=== PATIENT | female | born 1965 | race Caucasian/White ===

== ENCOUNTER 2017-12-01 11:13 | Day surgery (SDC) | payer OTHER ==
--- NOTE | 2017-12-01 12:20 | RAD ---
Indication: Foreign body. 2 views of the soft tissues of the neck demonstrates bony density at the inferior pharynx. I cannot totally exclude a radiopaque foreign body in the lateral view at the level of C4-C5. CT without contrast of the neck should BE considered to further evaluate. IMPRESSION: Fine linear radiodensity at the level of the vocal cords at C4-C5 level for which a foreign body cannot be excluded noncontrast CT of the neck could BE performed for further evaluation.
[2017-12-01 13:53] LABS: Urine Appearance Clear; Urine Blood Negative (Negative); Urine Color Straw; Urine Ketones Negative (Negative); Urine Protein Negative (Negative); Urine Red Blood Cell Trace(0-2/hpf) (Absent); Urine Specific Gravity 1.009 (1.010-1.030); Urine Urobilinogen Negative (Negative); Urine White Blood Cell Trace(0-5/hpf) (Absent)
[2017-12-01] MEDS: NS 0.9% 1000 ML* 2,000 ML IV ONE (14:37)
[2017-12-01] MEDS ORDERED: Lidocaine 4% TOPICAL* 50 ML TOP.SOLN ONE (18:00)
[2017-12-01] MEDS ORDERED: Oxymetazoline 0.05% NASAL SPR* 15 ML BTL ONE (18:00)
[2017-12-01] MEDS ORDERED: fentaNYL* 50 MCG/ML 2 ML VIAL (100 MCG VIAL) ONE (18:31)
[2017-12-01] MEDS ORDERED: Succinylcholine* 20 MG/ML 10 ML VIAL ONE (18:32)
[2017-12-01] MEDS ORDERED: Propofol* 10 MG/ML 20 ML BTL IV PUSH ONE (18:32)
[2017-12-01] MEDS ORDERED: Lidocaine 2% PF * 5 ML VIAL ONE (19:21)
[2017-12-01] MEDS ORDERED: Acetaminophen TAB* 325 MG PO PRN (19:31)
[2017-12-01] MEDS ORDERED: fentaNYL* 50 MCG/ML 2 ML VIAL (100 MCG VIAL) IV PRN (19:31)
[2017-12-01] MEDS ORDERED: Naloxone* 0.4 MG/ML 1 ML VIAL IV PRN (19:31)
[2017-12-01 19:53] VITALS: BP 134/104
--- NOTE | 2017-12-01 22:29 | CONS ---
CONSULTATION NOTE: DATE OF CONSULT: 12/01/17 HISTORY OF PRESENT ILLNESS: The patient is a 52-year-old who earlier in the day was eating chicken. She said she felt something get stuck in her throat and it is still there. That was in the early afternoon when this happened. She went to the emergency room and had an x-ray that shows there is probably a foreign body in the throat. It has been at least 5 hours and she continues to feel it. She is quite certain that the bone is stuck. PAST MEDICAL HISTORY: Significant for breast cancer. PAST SURGICAL HISTORY: Breast lumpectomy followed by radiation therapy. MEDICATIONS: None. ALLERGIES: No known drug allergies. PHYSICAL EXAMINATION: She is resting comfortably, in no acute distress. Neck is soft. Nasal laryngoscopy shows normal laryngeal function, no masses or lesions. Hypopharynx, piriform sinuses are clear. Her nose was sprayed with [place]avan -Synephrine and 4% lidocaine for this procedure. ASSESSMENT: The patient has a foreign body in her throat, most likely in the cricopharyngeus based on the x-ray and the fact that I am not seeing it on examination. PLAN: Laryngoscopy with removal of foreign body. We discussed the risks of breaking a tooth and lacerating the esophagus at this level and not finding it because it gets pushed through. She understands and has signed consent. [id number]/[facility] #: [id number] JULIANA
--- NOTE | 2017-12-01 22:35 | ED ---
Phuong Flanagan Jade, scribed for Sona Porter MD on 12/01/17 at 1410 . Neck Pain - HPI Summary HPI Summary: Pt is a 52 y/o female sent here from the who presents to the ED c/o a "chicken bone stuck in her throat". Pt has labs done this morning at the , ordered by her PCP, and while she was there she asked about the possibility of evaluation for chicken bone in her throat, and was advised to come to the ED. She states that last night at 20:30 she was eating "a chicken leg with some back attached to it", when she felt like there was a bone stuck in her throat. She denies any choking or aspiration. Pt states it feels like it feels when a large pill is stuck in her throat, and has a 1/10 discomfort level. Pt denies any hoarseness, but does state that the FB makes her ears stuffed. She is able to swallow liquids, and had no difficulty swallowing a banana smoothie this am. Her last PO intake was this morning at 8:00 (banana smoothie). She denies taking any medications, or PMHx GERD or esophageal procedure or endoscopy. PMHx breast cancer, and PSHx lumpectomy. Denies FHx CAD, or any bad reaction to anesthesia. - History of Current Complaint Chief Complaint: EDGeneral Stated Complaint: FO IN THROAT Time Seen by Provider: 12/01/17 11:43 Hx Obtained From: Patient Hx Last Menstrual Period: august 2015 Onset/Duration Of Injury/Symptoms: Hours Mechanism Of Injury: FB Potential Timing: Constant Onset/Duration: Sudden Onset, Started hours ago - Last night at 20:30, Still Present Severity Initially: Mild Severity Currently: Mild - Discomfort Pain Intensity: 1 Pain Scale Used: 0-10 Numeric Location: Discrete At: - points at level of thyroid cartilage Character: Sharp, Other: - FB (chicken bone) in throat Aggravating Factors: Nothing Alleviating Factors: Nothing Associated Signs & Symptoms: Positive: Negative - Allergies/Home Medications Allergies/Adverse Reactions: Allergies Allergy/AdvReac Type Severity Reaction Status Date / Time gel toothpaste Allergy Rash Uncoded 12/01/17 11:21 octopus Allergy Hives Uncoded 12/01/17 11:21 Home Medications: Home Medications NK [No Home Medications Reported] 12/01/17 [History Confirmed 12/01/17] PMH/Surg Hx/FS Hx/Imm Hx Previously Healthy: No Endocrine/Hematology History: Denies: Hx Diabetes, Hx Systemic Lupus Erythematosus Cardiovascular History: Denies: Hx Congestive Heart Failure, Hx Hypertension, Hx Pacemaker/ICD GI History: Denies: Hx Gastroesophageal Reflux Disease History: Denies: Hx Dialysis, Hx Renal Disease Musculoskeletal History: Denies: Hx Rheumatoid Arthritis Sensory History: Reports: Hx Contacts or Glasses - GLASSES Denies: Hx Hearing Aid Opthamlomology History: Reports: Hx Contacts or Glasses - GLASSES Neurological History: Reports: Other Neuro Impairments/Disorders - 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 D+C, Laparoscopy 2014 Hx Anesthesia Reactions: No Infectious Disease History: No Infectious Disease History: Denies: Hx Clostridium Difficile, Traveled Outside the [place] in Last 30 Days - Family History Known Family History: Negative: Cardiac Disease - Social History Occupation: Employed Full-time Alcohol Use: Weekly Alcohol Amount: 3 GLASSES/WEEK Substance Use Type: Reports: None Smoking Status (MU): Never Smoked Tobacco Have You Smoked in the Last Year: No Review of Systems Negative: Fever ENT: Negative - Hoarseness Positive: Sore Throat - FB in throat, Ear Ache - "Stuffed" Cardiovascular: Negative Respiratory: Negative Gastrointestinal: Negative Neurological: Negative Psychological: Normal All Other Systems Reviewed And Are Negative: Yes Physical Exam - Summary Physical Exam Summary: Appearance: Well-appearing, no pain distress, well-nourished, smiling, ambulatory, normal phonation, managing her own secretions Skin: Warm, color reflects adequate perfusion, dry Head: Normal Head/Face inspection, atraumatic Eyes: Conjunctiva clear ENT: Normal inspection, uvula midline, no evidence of trauma, intraoral mucosa moist, pt points to level of thyroid cartilage where she feels obstruction Neck: Supple, no nodes, no JVD. Respiratory: Lungs clear, normal breath sounds, no respiratory distress Cardio: RRR, No murmur, pulses normal, brisk capillary refill Abdomen: Soft, nontender Bowel sounds: Present Musculoskeletal: Strength Intact/ROM intact, no calf tenderness, no edema. Psychological: Normal Neuro: Alert, muscle tone normal, no focal deficit Triage Information Reviewed: Yes Vital Signs On Initial Exam: Initial Vitals Temp Pulse Resp BP Pulse Ox 96.8 F 82 15 149/94 99 12/01/17 11:17 12/01/17 11:17 12/01/17 11:17 12/01/17 11:17 12/01/17 11:17 Vital Signs Reviewed: Yes Diagnostics - Vital Signs Vital Signs Temp Pulse Resp BP Pulse Ox 12/01/17 13:00 88 98 12/01/17 12:46 87 144/93 98 12/01/17 11:17 96.8 F 82 15 149/94 99 - Laboratory Lab Statement: Any lab studies that have been ordered have been reviewed, and results considered in the medical decision making process. - Radiology Soft Tissue Neck XR Xray Interpretation: Positive (See Comments) - Fine linear radiodensity at the level of the vocal cords at C4-C5 level for which a foreign body cannot be excluded noncontrast CT of the neck could BE performed for further evaluation. ED physician reviewed radiology report. Radiology Interpretation Completed By: Radiologist Re-Evaluation - Re-Evaluation First Eval Re-Evaluation Time: 11:52 Change: Unchanged Comment: Explained to pt that a soft tissue neck XR will be performed. Her last PO intake was today at 8:00 (banana smoothie). Second Eval Re-Evaluation Time: 13:10 Change: Unchanged Comment: Informed pt of radiology results. Third Eval Re-Evaluation Time: 13:37 Change: Unchanged Comment: Informed pt a laryngoscopy will be performed. Neck Course/Dx - Course Course Of Treatment: Pt is a 52 y/o female sent from the c/o foreign body in her throat from eating a chicken leg. Physical exam revealed pt smiling, ambulatory, normal phonation, managing her own secretions, intraoral mucosa moist, pt points to level of thyroid cartilage where she feels obstruction. Soft tissue neck XR reveals fine linear radiodensity at the level of the vocal cords at the C4-C5 level for which a foreign body cannot be excluded. At 13:21 Dr. Nelson (GI) was consulted, who said to consult ENT since foreign body is at the level of the vocal cords. At 13:35 Dr. Echevarria (ENT) was consulted, and he will perform a laryngoscopy. Dx is esophageal foreign body. Dr. Echevarria accepts pt for admission. Pt allergies reviewed in this visit. - Diagnoses Differential Dx/HQI/PQRI: Positive: Other - GERD, mucosal irritation of esphagus , foreign body Provider Diagnoses: Foreign body in throat - Physician Notifications Discussed Care Of Patient With: Jose Saba Time Discussed With Above Provider: 11:50 Instructed by Provider To: Other - Start with soft tissue neck XR. At 13:21 Dr. Nelson (GI) was consulted, who said to consult ENT since foreign body is at the level of the vocal cords. At 13:35 Dr. Echevarria (ENT) was consulted, and he will perform a laryngoscopy. Discharge - Sign-Out/Discharge Documenting (check all that apply): Discharge/Admit/Transfer - Admit Signing out patient TO: Roberto Carlos Echevarria - Discharge Plan Condition: Stable Disposition: ADMITTED TO [facility] - Billing Disposition and Condition Condition: STABLE Disposition: Admitted to [facility] The documentation as recorded by the Phuong muniz Jade accurately reflects the service I personally performed and the decisions made by , Sona Porter MD.
--- NOTE | 2017-12-02 15:44 | OP ---
DATE OF OPERATION: 12/01/17 - [facility] DATE OF : 63 SURGEON: Sebastian Echevarria MD. PRE-OP DIAGNOSIS: Foreign body, throat. POST-OP DIAGNOSIS: Foreign body, throat. OPERATIVE PROCEDURE: Esophagoscopy with removal of throat foreign body under general endotracheal anesthesia. COMPLICATIONS: None. DISPOSITION: Good. SPECIMEN: None. BLOOD LOSS: None. DESCRIPTION OF PROCEDURE: The patient was taken to the operating room, placed in the supine position on the operating room table. General anesthesia was induced and she was orotracheally intubated, turned and draped for the surgery. Initially, I used a diverticuloscope to do a panendoscopy of her hypopharynx and postcricoid areas. No foreign body was found at this time. With that device, I could not cannulate the esophagus. I passed a G-tube through into the stomach and then followed that as far as I could; again, was held up at the cricopharyngeus. I took a rigid esophagoscopy and easily passed that through. It was 6.5 x 35 cm esophagoscope that was easily passed all the way to its hub at the GE junction. I then slowly withdrew it doing a complete examination of her esophagus and no foreign body was found. My assumption was that I passed this through to the stomach. ASSESSMENT: The patient is doing well, extubated uneventfully and transferred to the recovery room in stable condition. [id number]/[facility] #: [id number] MTDD
== END 2017-12-01 19:57 | disposition home or self-care (01) ==
LOC: ED 11:13 → OR 17:28
PROVIDERS: ATTEND Otolaryngology
DX: T17.200A Unspecified foreign body in pharynx causing asphyxiation, initial encounter (principal); X58.XXXA Exposure to other specified factors, initial encounter
CPT/HCPCS: 70360; 81003; 81015; 87086; 99282; A9270-GY; J0330; J2704; J3010